=== PATIENT | male | born 1945 | race Caucasian/White ===

== ENCOUNTER 2019-02-24 13:58 | Inpatient (IN) | payer BC ==
[~2019-02-24] VITALS: Ht 27.9 cm; Wt 132.9 kg
--- NOTE | ~2019-02-24 | CON ---
[address] [address] CONSULTATION Name: JULISA PAGE Room: [address] IN M.R.#: [id number] Admission: 02/24/19 Attend Phys: Jammie Mendoza Discharge: 03/01/19 Date of : 41 Report #: [id number] THIS REPORT FOR: //name// CC: Jammie Diego DATE OF SERVICE: 03/01/2019 CHIEF COMPLAINT: Followup of ulceration to the right inferior heel, complicated by type 2 diabetes mellitus and soft tissue infection. Wound cultures growing gram-positive cocci and gram-positive rods. He is on parenteral ceftriaxone with noted improvement. PHYSICAL EXAMINATION: Ulceration to right inferior heel measures roughly 3.0 cm diameter. There is less inflammation and minimal malodor. Overall, clinically improved. There is red granulation to the inferior aspect with some fibronecrotic slough over the proximal 80% of the wound bed. No exposed bone or tendon. IMPRESSION: Diabetic foot ulceration, right inferior heel with soft tissue infection. PLAN: Excisional ulcer debridement performed with the scalpel and forceps to excise subcutaneous tissue and slough. Bleeding was achieved and stopped with pressure. The wound was cleansed and dressed with Aquacel Ag and covered with ABDs, Kerlix and Bhavik bandage. I will follow the patient next week at [facility]. By: 1538 Jignesh Stout DPM /jessie
--- NOTE | ~2019-02-24 | CON ---
[address] [address] CONSULTATION Name: JULISA PAGE Room: [address] IN M.R.#: [id number] Admission: 02/24/19 Attend Phys: Jammie Mendoza Discharge: Date of : 41 Report #: [id number] THIS REPORT FOR: //name// CC: Jammie Diego DATE OF SERVICE: 02/27/2019 ADMISSION DIAGNOSES: ARF, left facial drooping. HISTORY OF PRESENT ILLNESS: A 73-year-old male presented to the Emergency Room with difficulty urinating. He has had a chronic right inferior heel wound for several months, which was debrided at [facility] during his last hospitalization for UTI. He denies any formal surgical debridement in the operating room. Wound swab cultures pending, he is on parenteral ceftriaxone. Wound care consists of topical Aquacel Ag and offloading in a Prevalon boot. He is currently nonambulatory. Foot radiographs negative for osteomyelitis or bone destruction. Blood cultures negative x 2. LABORATORY DATA: WBC 5.0, RBC 3.66, hemoglobin 10.7, hematocrit 31.4, platelets 113. BUN 15, creatinine 1.1, glucose 136. Albumin 2.8. PHYSICAL EXAMINATION: Ulceration to the right posterior calcaneus, measures roughly 3.0 cm with localized periwound inflammation. The wound bed has red granulation with some overlying fibrous slough. No exposed bone. No fluctuance or crepitation. No signs of acute vascular embarrassment. Feet are warm bilaterally with palpable dorsalis pedis and posterior tibial pulses. +3 nonpitting edema to both legs. IMPRESSION: Chronic diabetic heel ulceration, right heel with localized cellulitis. PLAN: The wound was cleansed and redressed with Aquacel Ag, ABDs, Kerlix and a Prevalon PRAFO boot. Awaiting culture results. I recommend bedside debridement tomorrow. By: 1934 [id number] Stout DPM /jessie
[~2019-02-24 13:58] MED LIST: ALPRAZOLAM PO; AMITRIPTYLINE H50 M2; AMLODIPINE BESY10 MG PO; APIDRA; ASPART INSULIN; ASPIRIN81 M2 PO; CARAFATE1 GM/10 ML PO; CLEOCIN HCL150 MG PO; COREG PO; DORYX100 MG PO; DOXYCYCLINE 10100 M1; DOXYCYCLINE 10100 M1 PO; GLUCOPHAGE500 MG PO; GLUCOTROL5 MG PO; HYDROCODON-ACE1 EAC5 PO; HYDROCODONE PO; LANTUS; LANTUSSOLASTAR SUBQ; LEVEMIR; LISINOPRIL40 MG PO; LOW DOSE ASPIRI81 M1 PO; MAGNESIUM400 MG PO; METHOTREXATE 22.5 MG; METHOTREXATE 22.5 MG PO; MINOCYCLINE HC100 M2 PO; NEXIUM PO; PRAVACHOL40 MG PO; PRAVACHOL80 MG PO; PRAVASTATIN SOD80 MG; REQUIP 1 MG TABL1 M1 PO; RESTORIL30 MG PO; XANAX PO; [UNRECOGNIZED DRUG - OTHER]; [UNRECOGNIZED DRUG - OTHER]
[2019-02-24 14:08] VITALS: BP 106/64
[2019-02-24 14:45] LABS: ABSOLUTE EOSINOPHILS 0.2 thou/uL (0.0-0.7); ABSOLUTE LYMPHOCYTES 1.1 thou/uL (0.8-5.3); ABSOLUTE MONOCYTES 0.4 thou/uL (0.0-1.2); ABSOLUTE NEUTROPHILS 4.9 thou/uL (1.6-8.1); BASOPHILS 0.4 %; EOSINOPHILS 2.8 %; HEMATOCRIT 36.3 % (42.0-52.0); HEMOGLOBIN 12.1 gm/dL (14.0-18.0); LYMPHOCYTES 17.1 %; MCH 28.6 pg (26.0-34.0); MCHC 33.2 g/dL (28.0-37.0); MCV 86.2 fL (80.0-100.0); MONOCYTES 6.3 %; NUCLEATED RBCS 0 /100WBC; PLATELET COUNT* 136 thou/uL (150-400); POLYS 73.4 %; RBC 4.21 mil/uL (4.50-6.00); RDW-CV 14.9 % (10.5-14.5); WBC 6.7 thou/uL (4.0-11.0)
[2019-02-24 14:53] LABS: CALCIUM 8.6 mg/dL (8.5-10.1); CREATININE 2.3 mg/dL (0.6-1.3); POTASSIUM 4.3 mmol/L (3.5-5.1)
[2019-02-24 14:57] LABS: ALBUMIN 3.6 g/dL (3.4-5.0); TOTAL BILIRUBIN 0.2 mg/dL (<0.1-1.0)
[2019-02-24 16:45] LABS: URINE BILIRUBIN NEGATIVE (Negative); URINE BLOOD NEGATIVE (Negative); URINE CLARITY CLEAR; URINE COLOR YELLOW; URINE GLUCOSE-RANDOM NEGATIVE (Negative); URINE KETONES NEGATIVE (Negative); URINE LEUKOCYTES-REFLEX NEGATIVE (Negative); URINE NITRITE-REFLEX NEGATIVE (Negative); URINE PROTEIN 2+ (Negative); URINE SPECIFIC GRAVITY >= 1.030 (1.005-1.030); URINE UROBILINOGEN 0.2 E.U./dl (0.2-1.0)
[2019-02-24 16:52] LABS: AMP/METHAMP Negative (Negative); BARBITURATES Negative (Negative); BENZODIAZEPINES POSITIVE (Negative); COCAINE Negative (Negative); METHADONE Negative (Negative); OPIATES POSITIVE (Negative); PCP Negative (Negative); THC Negative (Negative)
[2019-02-24 16:53] LABS: BACTERIA-REFLEX None Seen /HPF (None Seen); CASTS None Seen /LPF (None Seen); CRYSTALS None Seen /LPF (None Seen); MUCUS 0-3 Light strn/LPF (None Seen); SQUAMOUS 4-10 Moderate /LPF (0-3); URINE RBC None Seen /HPF (0-2); URINE WBC-REFLEX None Seen /HPF (0-5)
[2019-02-24 18:15] VITALS: BP 131/63
[2019-02-24 20:00] VITALS: BP 138/64
[2019-02-24] MEDS ORDERED: NORCO 10-325 T1 EACH PO (20:46)
[2019-02-25] VITALS (7 sets, daily range): BP systolic 104–182; BP diastolic 50–81
[2019-02-25] MEDS ORDERED: XANAX1 MG PO (02:12)
[2019-02-25] MEDS ORDERED: CHLORTHALIDONE25 MG PO (02:13)
[2019-02-25] MEDS ORDERED: COLACE100 MG PO (02:15)
[2019-02-25] MEDS ORDERED: CARDURA XL8 MG PO (02:15)
[2019-02-25] MEDS ORDERED: LUNESTA3 MG PO (02:16)
[2019-02-25] MEDS ORDERED: GABAPENTIN600 M1 PO (02:17)
[2019-02-25] MEDS ORDERED: GLIMEPIRIDE4 MG PO (02:19)
[2019-02-25] MEDS ORDERED: XALATAN2.5 ML OPHTHALMIC (02:20)
[2019-02-25] MEDS ORDERED: MICONAZOLE NITR45 G3 TOP (02:21)
[2019-02-25] MEDS ORDERED: REMERON 30 MG T30 M1 PO (02:22)
[2019-02-25] MEDS ORDERED: MS CONTIN 30 MG30 M1 PO (02:24)
[2019-02-25] MEDS ORDERED: MIRALAX17 GM PO (02:25)
[2019-02-25] MEDS ORDERED: MYSOLINE50 MG PO (02:26)
[2019-02-25] MEDS ORDERED: TIMOPTIC 0.5%1 EACH EA. EYE (02:27)
--- NOTE | 2019-02-25 05:33 | NUR ---
PT CARE ASSUMED AT 1930. ALERT AND ORIENTED X4 BUT CONFUSED AT TIMES. SAT DROPPED TO 87% IN RA, CONNECTED TO 3L NC. PT HAD ELEVATED BP AND HR, RUNNING FROM 125-135, PHYSICIAN INFORMED, ORDERS RECIEVED AND IMPLEMENTED. C/O PAIN, MEDICATION GIVEN PER EMAR. HOURLY ROUNDING DONE FOR PT SAFETY.
[2019-02-25 05:47] LABS: ABSOLUTE EOSINOPHILS 0.2 thou/uL (0.0-0.7); ABSOLUTE LYMPHOCYTES 0.8 thou/uL (0.8-5.3); ABSOLUTE MONOCYTES 0.3 thou/uL (0.0-1.2); ABSOLUTE NEUTROPHILS 3.7 thou/uL (1.6-8.1); BASOPHILS 0.4 %; EOSINOPHILS 3.2 %; HEMATOCRIT 31.4 % (42.0-52.0); HEMOGLOBIN 10.7 gm/dL (14.0-18.0); LYMPHOCYTES 15.1 %; MCH 29.2 pg (26.0-34.0); MCHC 34.1 g/dL (28.0-37.0); MCV 85.6 fL (80.0-100.0); MONOCYTES 6.9 %; MPV 7.5 fl. (7.2-11.1); NUCLEATED RBCS 0 /100WBC; PLATELET COUNT* 113 thou/uL (150-400); POLYS 74.4 %; RBC 3.66 mil/uL (4.50-6.00); RDW-CV 14.9 % (10.5-14.5)
[2019-02-25 06:01] LABS: ALBUMIN 2.8 g/dL (3.4-5.0); ALKALINE PHOSPHATASE 112 U/L (46-116); ANION GAP 7 mmol/L (7-16); BUN 41 mg/dL (7-18); CALCIUM 7.9 mg/dL (8.5-10.1); CHLORIDE 103 mmol/L (98-107); CHOLESTEROL 109 mg/dL (<200); CO2 26 mmol/L (21-32); CREATININE 1.9 mg/dL (0.6-1.3); GLUCOSE 218 mg/dL (70-99); HDL CHOLESTEROL 30 mg/dL (>40); LDL CHOLESTEROL 25 mg/dL (<100); POTASSIUM 4.4 mmol/L (3.5-5.1); SGOT 16 U/L (15-37); SGPT 27 U/L (30-65); SODIUM 136 mmol/L (136-145); TC:HDL 3.6 Ratio (Not establshd); TOTAL BILIRUBIN 0.1 mg/dL (<0.1-1.0); TOTAL PROTEIN 5.8 g/dL (6.4-8.2); TRIGLYCERIDE 273 mg/dL (<150); VLDL 55 mg/dL (<40)
[2019-02-25 06:04] LABS: SERUM ASSESSMENT CLEAR
--- NOTE | 2019-02-25 19:43 | NUR ---
ASSUMED PT CARE AT 0730. ASSESSMENT COMPLETED CHARTED. ABLE TO MAKE NEEDS KNOWN. NO C/O PAIN OR DISCOMFORT. Q2 TURNS COMPLETED CHARTED. PT RESTING IN BED ALL DAY. REDNESS NOTICED UNDER LEFT SIDE OF PANIS. CARTER DRAINING YELLOW URINE. WILL CONTINUE TO MONITOR.
[2019-02-26 03:58] VITALS: BP 188/83
[2019-02-26 04:29] VITALS: BP 136/67
--- NOTE | 2019-02-26 05:35 | NUR ---
PT CARE ASSUMED AT 1930. SAT MAINTAINED IN O2. PT IS DROWSY. TEMPRATURE ELEVATED, MEDICATION GIVEN PER EMAR. CALL LIGHT WITHIN REACH AND BED IN LOW POSITION. CARTER IN PLACE AND DRAINING. HOURLY ROUNDING DONE FOR PT SAFETY.
[2019-02-26 08:00] VITALS: BP 168/72
[2019-02-26 11:58] LABS: CREATININE 1.3 mg/dL (0.6-1.3); POTASSIUM 4.4 mmol/L (3.5-5.1)
[2019-02-26 12:52] VITALS: BP 191/82
--- NOTE | 2019-02-26 17:04 | NUR ---
ASSUMED PT CARE AT 0730. ASSESSMENT COMPLETED CHARTED. PT REFUSED MORNING MEDS AND WAS HARD TO AROUSE THIS MORNING. GOT AGITATED AT STAFF AND WANTED US TO LEAVE HIM ALONE THE REST OF THE DAY. PT BLOOD PRESSURE WENT UP TO 190S AND PT AGREED TO TAKE BLOOD PRESSURE MEDICATION AND HIS 2 OCLOCK MEDS. PT SLEEPING IN BED AT THIS TIME. Q2 TURNS COMPLETED CHARTED. C/O BLE PAIN FROM NEUROPATHY AND GAVE PRN PAIN MEDICATION PER EMAR. WILL CONTINUE TO MONITOR.
[2019-02-26 18:33] VITALS: BP 171/75
[2019-02-26 20:00] VITALS: BP 180/85
[2019-02-27] VITALS (7 sets, daily range): BP systolic 126–187; BP diastolic 64–90
[2019-02-27 06:12] LABS: CALCIUM 8.1 mg/dL (8.5-10.1); CREATININE 1.1 mg/dL (0.6-1.3); POTASSIUM 4.4 mmol/L (3.5-5.1)
--- NOTE | 2019-02-27 06:52 | NUR ---
PT CARE ASSUMED AT 1930. WOKE UP CONFUSED THIS AM, DIDN'T KNEW WHERE HE WAS, ORIENTATION PROVIDED, EASILY REDIRECTED WITH ORIENTATION. REFUSING TO PUT HIS HEART MONITOR ON AND BE ON O2. THREW THE HEART MONITOR ON THE FLOOR WHILE THIS NURSE WAS EDUCATING ABOUT THE PURPOSE OF HEART MONITOR. SAT DOWN TO 89% IN RA. THIS NURSE, OTHER STAFF NURSES AND CHARGE NURSE TRIED. PT REFUSING, PROVIDED EDUCATION, NEEEDS REINFORCEMENT. PT OFF THE MONITOR FOR ALMOST ONE AND HALF HOUR. AGREED TO PUT OXYGEN. BP ELEVATED, PHYSICIAN INFORMED AND ORDERS RECIEVED. C/O PAIN, MEDICATION GIVEN PER EMAR. CALL LIGHT WITHIN REACH AND BED IN LOW POSITION. HOURLY ROUNDING DONE FOR PT SAFETY.
--- NOTE | 2019-02-27 11:15 | NUR ---
WOUND CARE NOTE: CONSULT RECEIVED FOR RT HEEL WOUND AND REDNESS ON HIS BOTTOM PATIENT PRESENTS WITH A STAGE 2 PRESSURE ULCER TO HIS COCCYX. BILATERAL BUTTOCK WITH SCAR TISSUE PRESENT, BELIEVE HE HAS HAD PRESSURE INJURIES HERE BEFORE. COCCYX WOUND MEASURES APPROXIMATELY 1X0.3X0.1. MOIST, PINK WOUND BED. RECOMMEND APPLYING BARRIER OINTMENT AND TURNING OFF OF THE SITE. RIGHT HEEL PRESENTS WITH A FULL THICKNESS ULCERATION. WOUND MEASURES APPROXIMATELY 3X3X0.3. APPROXIMATELY 5% WITH RED, MOIST, FRIABLE GRANULATION TISSUE. 95% WITH YELLOW, BLACK ADHERENT ESCHAR. WOUND IS FOUL SMELLING. DRAINING SANGUINEOUS AND BROWN DRAINAGE. LOVELY-WOUND WITH ERYTHEMA AND MACERATION. AREA WAS CLEANSED WITH WOUND CLEANSER, PATTED DRY. APPLIED AQUACEL AG AND COVERED WITH ABD. SECURED WITH KERLIX AND APPLIED HEELMEDIX BOOT. EDUCATED PATIENT ON THE HEELMEDIX BOOT USE, COMMUNICATED UNDERSTANDING. RECOMMEND KEEP HEELS OFF BED TURN Q2 HOURS, LIMIT TIME ON WOUND ENCOURAGE GOOD NUTRTION/HYDRATION TIGHT BLOOD GLUCOSE CONTROL DEBRIDEMENT OF RIGHT HEEL
--- NOTE | 2019-02-27 13:33 | NUR ---
MET WITH PT TO DISCUSS HOME SITUATION/DC PLANNING. PT LIVES WITH SON. HE ASSISTS PT WITH TRANSPORTATION, COOKING, CLEANING. PT IS ABLE TO DO HIS OWN ADLS, USES WALKER. PT HAS HH WITH [facility], WANTS TO CONTINUE WITH THEM AT [place]. PT STATES HIS FOOT WOUND WAS GETTING 'WORSE' AND HH SET HIM UP AT [facility]. PODIATRY TO SEE LATER TODAY. PT HAS BEEN TO SNF IN PAST BUT AT THIS TIME, DOESN'T WANT TO GO, PREFERS TO RETURN HOME AT DC WITH HH. WILL FOLLOW
--- NOTE | 2019-02-27 17:05 | 2DMMODE ---
[place] [address] 2 D/M-MODE ECHOCARDIOGRAM Name: JULISA PAGE Room: [address] IN M.R.#: [id number] Admission: 02/24/19 Attend Phys: Jammie alba Sa Discharge: Date of : 41 Date of Service: 02/27/19 1704 Report #: [id number] THIS REPORT FOR: //name// APPROVED REPORT Study performed: 02/27/2019 11:22:52 EXAM: Comprehensive 2D, Doppler, and color-flow Echocardiogram BSA: 2.41 HR: 90 bpm Other Information Study Quality: Fair Indications CVA/TIA Echo Enhancing Agent Indication: Rule out Shunt Agent(s) / Amount(s) Used: Agitated Saline cc 2D Dimensions IVSd: 23.38 (7-11mm) LVOT Diam: 18.29 (18-24mm) LVDd: 47.16 mm PWd: 12.74 (7-11mm) Ascending Ao: 29.77 (22-36mm) LVDs: 34.58 (25-40mm) Aortic Root: 29.82 mm Volumes Left Atrial Volume (Systole) LA ESV Index: 26.00 mL/m2 Aortic Valve AoV Peak Randal.: 1.09 m/s AO Peak Gr.: 4.73 mmHg LVOT Max P.89 mmHg AO Mean Gr.: 2.96 mmHg LVOT Mean P.81 mmHg LVOT Max V: 0.85 m/s AO V2 VTI: 18.73 cm LVOT Mean V: 0.64 m/s LONNY (VTI): 2.69 cm2 LVOT V1 VTI: 19.16 cm Mitral Valve E/A Ratio: 0.80 MV Decel. Time: 132.60 [place] [address] 2 D/M-MODE ECHOCARDIOGRAM Name: JULISA PAGE Room: [address] IN ..#: [id number] Admission: 02/24/19 Attend Phys: Jammie alba Sa Discharge: Date of : 41 Date of Service: 02/27/19 1704 Report #: [id number] MV E Max Randal.: 1.01 m/s MV PHT: 38.46 ms MVA (PHT): 5.72 cm2 TDI E/Lateral E': 14.43 E/Medial E': 20.20 Medial E' Randal.: 0.05 m/s Lateral E' Randal.: 0.07 m/s Pulmonary Valve PV Peak Randal.: 1.13 m/s PV Peak Gr.: 5.15 mmHg Tricuspid Valve RAP Estimate: 5.00 mmHg TR Peak Gr.: 8.95 mmHg RVSP: 13.95 mmHg PA Pressure: 13.95 mmHg Left Ventricle The left ventricle is normal size. There is normal LV segmental wall motion. Mild concentric left ventricular hypertrophy. Left ventricular systolic function is normal. The left ventricular ejection fraction is within the normal range. LVEF is 60-65%. Grade I - abnormal relaxation pattern. Right Ventricle The right ventricle is normal size. The right ventricular systolic function is normal. Atria The left atrium size is normal. Interatrial septum not well visualized. Injection of bubbles documented no interatrial shunt. The right atrium size is normal. Aortic Valve The aortic valve is normal in structure. No aortic regurgitation is present. There is no aortic valvular stenosis. Mitral Valve Mild mitral annular calcification. Trace mitral regurgitation. No evidence of mitral valve stenosis. Tricuspid Valve The tricuspid valve is normal in structure. There is no tricuspid valve regurgitation noted[place] [address] 2 D/M-MODE ECHOCARDIOGRAM Name: JULISA PAGE Room: [address]#: [id number] Admission: 02/24/19 Attend Phys: Jammie alba Sa Discharge: Date of : 41 Date of Service: 02/27/19 1704 Report #: [id number] The pulmonary valve is normal in structure. There is no pulmonic valvular regurgitation. Great Vessels The aortic root is normal in size. IVC is not visualized. Pericardium There is no pericardial effusion. <Conclusion> The left ventricle is normal size. Mild concentric left ventricular hypertrophy. Left ventricular systolic function is normal. The left ventricular ejection fraction is within the normal range. LVEF is 60-65%. Grade I - abnormal relaxation pattern. The right ventricle is normal size. The left atrium size is normal. The aortic valve is normal in structure. Mild mitral annular calcification. Trace mitral regurgitation. No evidence of mitral valve stenosis. The tricuspid valve is normal in structure. There is no pericardial effusion. There is normal LV segmental wall motion. Interatrial septum not well visualized. Injection of bubbles documented no interatrial shunt. <ELECTRONICALLY SIGNED> By: Candelario Fernandes MD, FACC 02/27/191703 03 03 Candelario Fernandes MD, FACC /INF
--- NOTE | 2019-02-27 17:10 | EKG ---
[place] [address] ELECTROCARDIOGRAM REPORT Name: JULISA PAGE Room: [address] ADM IN M.R.#: [id number] Admission: 02/24/19 Attend Phys: Jammie Mendoza Discharge: Date of : 41 Report #: [id number] THIS REPORT FOR: //name// [facility] Test Date: 2019-02-27 Test Time: 04:48:08 Pat Name: JULISA PAGE Department: Room: [address] Gender: M Vice President Global Digital Marketing: JY : 1945 Requested By: Jeffrey Mcdonnell Order Number: [id number] Jorje MD: Forest Mondragon Measurements Intervals [place] Rate: 117 P: 51 SD: 144 QRS: 0 QRSD: 149 T: 24 QT: 362 QTc: 505 Interpretive Statements Sinus tachycardia Right bundle branch block Inferior infarct Baseline wander in lead(s) V3 Compared to ECG 10/01/2011 03:41:01 No significant changes Electronically Signed On 02-27-2019 17:10:14 DIRECTOR OF ACQUISITION MARKETING by Forest Mondragon [email or web address] <ELECTRONICALLY SIGNED> By: Forest Mondragon MD, FAC 02/27/19 1710 0448 [id number] Forest Mondragon MD, [facility] /EPI
--- NOTE | 2019-02-27 19:33 | NUR ---
ASSUMED PT CARE AT 0730. ASSESSMENT COMPLETED CHARTED. ABLE TO MAKE NEEDS KNOWN. Q2 TURNS COMPLETED CHARTED. C/O BLE PAIN AND GAVE PRN PAIN MEDICATION CHARTE. REFUSED PT/OT TODAY. USED BEDPAN FOR BM AND CARTER DRAINING DARKER YELLOW URINE. RESTING IN BED AT THIS TIME. REFUSED MRI. WILL CONTINUE TO MONITOR.
[2019-02-28] VITALS (8 sets, daily range): BP systolic 135–210; BP diastolic 61–90
--- NOTE | 2019-02-28 04:37 | NUR ---
ASSUMED PT CARE AT APPROX 1930. PT IS AWAKE AND ORIENTED X4 BUT FORGETFUL. ELEVATED BP's NOTED-SEE CHARTING, SCHEDULED BP MEDS GIVEN, VITAL SIGNS STABLE OTHERWISE ON 2L OF O2/NC. PT REFUSED SOME TURNS AND IS IRRITABLE AT TIMES. EDUCATION PROVIDED ON THE IMPORTANCE OF POSITION CHANGES. PT IS ABLE TO SLEEP MOST OF THE NIGHT. CALL LIGHT WITHIN REACH. HOURLY ROUNDING DONE FOR SAFETY. HIGH FALL PRECAUTIONS IN PLACE.
--- NOTE | 2019-02-28 07:20 | NUR ---
CHANGE OF SHIFT, BEDSIDE REPORT GIVEN PATIENT SEEN AT BEDSIDE, IN BED ASLEEP ASSUMED PATIENT CARE
--- NOTE | 2019-02-28 15:54 | NUR ---
ATTEMPTED TO MEET WITH PT, WAS SLEEPING. NOTED HAS REFUSED PT/OT. CALL TO SON/GREYSON WHO PT LIVES WITH. GREYSON CARES FOR PT AT HOME. HE STATES PT IS ABLE TO AMBULATE SHORT DISTANCE WITH WALKER. HE STATES HIS MOTHER (PT'S ) IN NOV AND PT IS DEPRESSED. PT WAS IN SNF AT THE TIME OF HER AND WILL NOT RETURN TO A SNF, WILL GO HOME WITH HH. GREYSON STATED THAT HE IS UNHAPPY WITH CURRENT HH, FELT THAT HE HAD SHARED CONCERN ABOUT PT'S CURRENT FOOT WOUND WITH NURSE AND THEIR INTERVENTION WASN'T ENOUGH. HE IS INTERESTED IN A DIFFERENT HH WITH WOUND CARE. DISCUSSED OPTIONS AND HE HAD NO PREFERENCE. CALL TO [facility], WILL REFER TO A DIFFERENT AGENCY. GREYSON STATED HE WANTS PT TO F/U WITH [facility]. MADE HIM AWARE PT WILL HAVE DEBRIDEMENT TODAY OR TOMORROW AT BEDSIDE BY ASSISTANT PROFESSOR. HE ALSO STATED PT HAD BEEN ON HOSPICE WITH [facility] 5YRS AGO AND WAS 'OVERDOSED' ON [place] BY THEM SO HE STOPPED THAT SERVICE. GREYSON IS DPOA, WILL BRING IN PAPERS TODAY. REF TO [facility] TO SEE IF THEY CAN ACCEPT INSURANCE, THEY CAN. GREYSON TO DISCUSS DIFFERENT HH WITH PT AND CM TO FOLLOW
[2019-03-01 00:33] VITALS: BP 148/72
[2019-03-01 04:00] VITALS: BP 134/68
--- NOTE | 2019-03-01 05:04 | NUR ---
ASSUMED PT CARE AT APPROX 1930. PT IS LETHARGIC BUT AWAKENS EASILY, ORIENTED X4-FORGETFUL AT TIMES. VSS ON 2L OF O2/NC. ASSESSMENT DONE AND CHARTED. HIGH FALL PRECAUTIONS IN PLACE. CALL LIGHT WITHIN REACH. POSITION CHANGES DONE. HOURLY ROUNDING DONE FOR PT SAFETY.
[2019-03-01 05:29] LABS: ABSOLUTE EOSINOPHILS 0.2 thou/uL (0.0-0.7); ABSOLUTE LYMPHOCYTES 0.9 thou/uL (0.8-5.3); ABSOLUTE MONOCYTES 0.4 thou/uL (0.0-1.2); ABSOLUTE NEUTROPHILS 2.4 thou/uL (1.6-8.1); BASOPHILS 0.9 %; EOSINOPHILS 5.6 %; HEMATOCRIT 31.6 % (42.0-52.0); HEMOGLOBIN 10.8 gm/dL (14.0-18.0); LYMPHOCYTES 22.9 %; MCH 29.1 pg (26.0-34.0); MCHC 34.3 g/dL (28.0-37.0); MCV 84.8 fL (80.0-100.0); MONOCYTES 9.4 %; MPV 7.7 fl. (7.2-11.1); NUCLEATED RBCS 0 /100WBC; PLATELET COUNT* 151 thou/uL (150-400); POLYS 61.2 %; RBC 3.73 mil/uL (4.50-6.00); RDW-CV 14.5 % (10.5-14.5); WBC 3.9 thou/uL (4.0-11.0)
[2019-03-01 05:46] LABS: ALBUMIN 2.3 g/dL (3.4-5.0); CALCIUM 8.3 mg/dL (8.5-10.1); CREATININE 1.1 mg/dL (0.6-1.3); POTASSIUM 3.8 mmol/L (3.5-5.1); TOTAL BILIRUBIN 0.2 mg/dL (<0.1-1.0); TOTAL PROTEIN 5.7 g/dL (6.4-8.2)
[2019-03-01 07:30] VITALS: BP 159/69
--- NOTE | 2019-03-01 12:03 | CON ---
[address] [address] CONSULTATION Name: JULISA PAGE Room: [address] IN M.R.#: [id number] Admission: 02/24/19 Attend Phys: Jammie Mendoza Discharge: Date of : 41 Report #: [id number] THIS REPORT FOR: //name// CC: Jammie Diego DATE OF SERVICE: 02/28/2019 INFECTIOUS DISEASE CONSULTATION ATTENDING PHYSICIAN: Stevenson Garcia MD REASON FOR EVALUATION: Chronic right inferior heel wound going on for multiple months. He had been followed as an outpatient at [facility]. He had 3 times a week wound care with lack of progression. He was admitted actually through the Emergency Room with complaints of difficulty urinating as well as left facial drooping and some renal failure. He is noted undergoing wound care and supposed to have a bedside debridement. He is at least moderately encephalopathic. He has some foot pain. It is not clear whether he has ongoing neuropathy. No recent fevers. He has been empirically started on ceftriaxone. Cultures of the blood are sterile thus far as is the urine, which is pending and the foot culture. ALLERGIES: None known. MEDICATIONS: Include hydralazine, alprazolam, carvedilol, ceftriaxone, morphine, insulin glargine, doxazosin, mirtazapine, insulin lispro, finasteride, glipizide, aspirin, gabapentin, amlodipine, chlorthalidone, atorvastatin. PAST MEDICAL HISTORY: Diabetes mellitus type 2, insulin requiring; hypertension; history of histoplasmosis; arthritis, multiple sites and has degree of encephalopathy. SOCIAL HISTORY: He is a former smoker, occasional ethanol, although excessive use in the past. No illicit drug use. FAMILY HISTORY: Noncontributory. REVIEW OF SYSTEMS: Somewhat limited as above. Does admit to some mild dyspnea. He is on supplemental oxygen, normally at home. PHYSICAL EXAMINATION: GENERAL: He appears chronically ill, undernourished. He is again encephalopathic. VITAL SIGNS: Temperature 97.8, pulse 100, respirations 19, blood pressure 150/66. [place] [address] CONSULTATION Name: JULISA PAGE Room: [address] IN [facility]#: [id number] Admission: 02/24/19 Attend Phys: Jammie Mendoza Discharge: Date of : 41 Report #: [id number] SKIN: Warm, dry. HEENT: Normocephalic. Extraocular muscles intact. NECK: Supple. LUNGS: Scattered coarse breath sounds. HEART: Regular. Borderline tachycardic. I do not appreciate a murmur. ABDOMEN: Distended, generally soft, nontender. GENITOURINARY: Deferred. RECTAL: Deferred. LABORATORY DATA: Echo, EF of 60-65%, some mild concentric left ventricular hypertrophy, no significant valvular abnormalities. Electrolytes from yesterday: Sodium 139, potassium 4.4, chloride 104, bicarb is 29, anion gap of 6, BUN and creatinine 15 and 1.1, estimated GFR 65. Blood cultures sterile thus far. TSH is 0.771. CBC from the 11th: White count of 5.0, H and H 10.7 and 31.4, platelets of 113. ASSESSMENT AND PLAN: Right heel ulcer, chronic in nature. We will discuss with Dr. Stout, pending bedside debridement. Continue empiric therapy with ceftriaxone. Await the further culture results. May need to adjust treatment. Again, he remains tenuous at this point. We will add incentive spirometry. Would be concerned about nosocomial related infectious complications as well. Increase activity as much as optimize nutritional status. <ELECTRONICALLY SIGNED> By: Brayan Magdaleno MD 03/01/19 1203 1022 [id number] Magdaleno MD /nt
--- NOTE | 2019-03-01 12:05 | NUR ---
CONTINUE TO FOLLOW. MET WITH PT, HE WAS UP IN CHAIR. DISCUSSED HH WITH HIM AND CONVERSATION CM HAD WITH SON YESTERDAY RE: POSSIBLE CHANGE OF HH. PT STATED HE WAS 'FINE' WITH HIS CURRENT NURSE AND DIDN'T WANT 'TO GET HER IN TROUBLE.' EXPLAINE TO PT THAT HE NEEDED TO DISCUSS WITH HIS SON SON HAD CONCERNS. PT STILL PLANS TO RETURN HOME AT [place]. PENDING PODIATRY RE-EVAL AND POSSIBLE DEBRIDEMENT. DISCUSSED WITH , AWAIT CULTURES AND ID DIRECTION ABX. WILL FOLLOW
[2019-03-01 12:28] VITALS: BP 161/66
[2019-03-01 15:49] VITALS: BP 161/66
[2019-03-01] MEDS ORDERED: CEFDINIR300 MG PO (16:26)
--- NOTE | 2019-03-01 17:00 | NUR ---
RECEIVED DISCHARGE ORDERS PER DR CARRERA. DR VAIL AND DR CARSON OK WITH DC TODAY. DEBRIDEMENT DONE BY DR VAIL THIS AFTERNOON AND A NEW DRESSING WAS PLACED TO PATIENTS RIGHT HEEL. ANTIBIOTICS ORDERED PER DR CARSON AND CALLED INTO THE PATIENTS PHARMACY BY THIS RN. IV DISCONTINUED. GLASS FORMING CREW MEMBER REMOVED AND RETURNED TO THE NURSE'S DESK. PATIENT'S BROTHER COMING TO PROVIDE TRANSPORTATION FOR PATIENT HOME. CARTER CATHETER IN PLACE AT DISCHARGE AND INSTRUCTED PATIENT TO F/U WITH UROLOGY IN 7-10 DAYS FOR VOIDING TRIAL. PATIENT AGREEABLE FOR DC TODAY.
== END 2019-03-01 18:15 | disposition home health service (06) | DRG 40 ==
LOC: M.ERS 13:58 → M.2W 15:54 → M.TBA-ER 15:54 → M.2W 18:37
PROVIDERS: Internal Medicine; Physician Assistant; Urology; ADMIT Family Medicine
PROC: 0JBQ0ZZ Excision of Right Foot Subcutaneous Tissue and Fascia, Open Approach (ICD-10-PCS; principal; 2019-02-24)
DX: G45.9 Transient cerebral ischemic attack, unspecified (principal); N17.0 Acute kidney failure with tubular necrosis; L03.115 Cellulitis of right lower limb; E44.0 Moderate protein-calorie malnutrition; E11.621 Type 2 diabetes mellitus with foot ulcer; N28.1 Cyst of kidney, acquired; I10 Essential (primary) hypertension; M17.0 Bilateral primary osteoarthritis of knee; R29.810 Facial weakness; G25.81 Restless legs syndrome; L40.9 Psoriasis, unspecified; G89.29 Other chronic pain; N40.0 Benign prostatic hyperplasia without lower urinary tract symptoms; L89.611 Pressure ulcer of right heel, stage 1; N40.1 Benign prostatic hyperplasia with lower urinary tract symptoms; R33.8 Other retention of urine; Z87.891 Personal history of nicotine dependence; Z79.4 Long term (current) use of insulin; Z82.49 Family history of ischemic heart disease and other diseases of the circulatory system; Z83.3 Family history of diabetes mellitus

== ENCOUNTER → 2019-03-08 | Outpatient (CLI) | payer BC ==
[~2019-03-08] MED LIST changes: +CARDURA XL8 MG PO; +CEFDINIR300 MG PO; +CHLORTHALIDONE25 MG PO; +COLACE100 MG PO; +GABAPENTIN600 M1 PO; +GLIMEPIRIDE4 MG PO; +LUNESTA3 MG PO; +MICONAZOLE NITR45 G3 TOP; +MIRALAX17 GM PO; +MS CONTIN 30 MG30 M1 PO; +MYSOLINE50 MG PO; +NORCO 10-325 T1 EACH PO; +REMERON 30 MG T30 M1 PO; +TIMOPTIC 0.5%1 EACH EA. EYE; +XALATAN2.5 ML OPHTHALMIC; +XANAX1 MG PO
--- NOTE | 2019-03-09 12:03 | CON ---
[address] [address] CONSULTATION Name: JULISA PAGE Room: [facility] A[facility] Singh.#: [id number] Admission: 03/08/19 Attend Phys: Renny Stout DPM Discharge: Date of : 41 Report #: [id number] THIS REPORT FOR: //name// CC: Renny Hernández DATE OF SERVICE: 03/08/2019 INFECTIOUS DISEASE CONSULTATION FOLLOWUP ATTENDING PHYSICIAN: Sana Amaya.P. M. HISTORY OF PRESENT ILLNESS: He is here for necrotizing infection involving his right heel. He continues to deny significant amount of pain or discomfort associated with the site, although I believe he has some peripheral neuropathy. He generally has not been systemically ill. On examination, the wound appears quite improved, there is a very little necrotic tissue that remains. For right heel ulceration, at this point, we would continue the current approach. He has got 4 more days of antibiotics. We will plan to complete that particular prescription and discontinue. We will see him back in 2 weeks. <ELECTRONICALLY SIGNED> By: Brayan Magdaleno MD 03/09/19 1203 0900 [id number] Magdaleno MD /nt
== END ==
LOC: M.WC 14:00
DX: E11.621 Type 2 diabetes mellitus with foot ulcer (principal); L97.412 Non-pressure chronic ulcer of right heel and midfoot with fat layer exposed; E11.65 Type 2 diabetes mellitus with hyperglycemia; E78.5 Hyperlipidemia, unspecified; I10 Essential (primary) hypertension; G89.4 Chronic pain syndrome; G25.89 Other specified extrapyramidal and movement disorders; K59.04 Chronic idiopathic constipation; L40.9 Psoriasis, unspecified; M19.91 Primary osteoarthritis, unspecified site; F41.9 Anxiety disorder, unspecified; Z87.891 Personal history of nicotine dependence; Z86.73 Personal history of transient ischemic attack (TIA), and cerebral infarction without residual deficits

== ENCOUNTER 2019-03-10 21:53 | Emergency (ER) | payer BC ==
[~2019-03-10] VITALS: Ht 180.3 cm; Wt 127.0 kg
[2019-03-10 22:40] LABS: URINE BILIRUBIN NEGATIVE (Negative); URINE BLOOD 2+ (Negative); URINE CLARITY CLEAR; URINE COLOR YELLOW; URINE GLUCOSE-RANDOM NEGATIVE (Negative); URINE KETONES NEGATIVE (Negative); URINE LEUKOCYTES-REFLEX NEGATIVE (Negative); URINE NITRITE-REFLEX NEGATIVE (Negative); URINE PROTEIN 1+ (Negative); URINE SPECIFIC GRAVITY <= 1.005 (1.005-1.030); URINE UROBILINOGEN 0.2 E.U./dl (0.2-1.0)
[2019-03-10 22:47] LABS: CRYSTALS None Seen /LPF (None Seen); HYALINE CASTS 0-3 Few /LPF (None Seen); MUCUS 4-6 Moderate strn/LPF (None Seen); SQUAMOUS 0-3 Few /LPF (0-3); URINE RBC 3-10 Few /HPF (0-2); WBC CLUMPS Few (None Seen)
[2019-03-10 22:52] LABS: ABSOLUTE BASOPHILS 0.1 thou/uL (0.0-0.2); ABSOLUTE EOSINOPHILS 0.3 thou/uL (0.0-0.7); ABSOLUTE LYMPHOCYTES 1.2 thou/uL (0.8-5.3); ABSOLUTE MONOCYTES 0.4 thou/uL (0.0-1.2); ABSOLUTE NEUTROPHILS 4.7 thou/uL (1.6-8.1); EOSINOPHILS 4.7 %; HEMATOCRIT 34.1 % (42.0-52.0); HEMOGLOBIN 11.5 gm/dL (14.0-18.0); LYMPHOCYTES 18.5 %; MCH 28.5 pg (26.0-34.0); MCHC 33.8 g/dL (28.0-37.0); MCV 84.3 fL (80.0-100.0); MONOCYTES 6.1 %; MPV 7.8 fl. (7.2-11.1); NUCLEATED RBCS 0 /100WBC; PLATELET COUNT* 201 thou/uL (150-400); POLYS 69.7 %; RBC 4.05 mil/uL (4.50-6.00); RDW-CV 14.1 % (10.5-14.5); WBC 6.7 thou/uL (4.0-11.0)
[2019-03-10 23:11] LABS: CREATININE 1.4 mg/dL (0.6-1.3); POTASSIUM 4.4 mmol/L (3.5-5.1)
[2019-03-11] MEDS ORDERED: CIPROFLOXACIN500 M1 PO (01:40)
[2019-03-11] MEDS ORDERED: FLOMAX0.4 MG PO (01:40)
[2019-03-11] MEDS ORDERED: TEMAZEPAM15 MG PO (02:10)
[2019-03-11 02:15] VITALS: BP 165/78
== END 2019-03-11 02:16 | disposition home or self-care (01) ==
LOC: M.ERS 21:53
PROVIDERS: Emergency Medicine
DX: N39.0 Urinary tract infection, site not specified (principal); E11.9 Type 2 diabetes mellitus without complications; I10 Essential (primary) hypertension; Z79.4 Long term (current) use of insulin

== ENCOUNTER → 2019-04-12 | Outpatient (CLI) | payer BC ==
[~2019-04-12] MED LIST changes: +CIPROFLOXACIN500 M1 PO; +FLOMAX0.4 MG PO; +TEMAZEPAM15 MG PO
== END ==
LOC: M.WC 02:13
DX: E11.621 Type 2 diabetes mellitus with foot ulcer (principal); L97.412 Non-pressure chronic ulcer of right heel and midfoot with fat layer exposed; I87.2 Venous insufficiency (chronic) (peripheral); I10 Essential (primary) hypertension; E11.40 Type 2 diabetes mellitus with diabetic neuropathy, unspecified; E78.5 Hyperlipidemia, unspecified; G89.4 Chronic pain syndrome; G25.81 Restless legs syndrome; L40.9 Psoriasis, unspecified; F41.9 Anxiety disorder, unspecified; Z87.891 Personal history of nicotine dependence; Z86.73 Personal history of transient ischemic attack (TIA), and cerebral infarction without residual deficits

== ENCOUNTER → 2019-04-26 | Outpatient (CLI) | payer BC | LOC: M.WC 04:51 | DX: E11.621 Type 2 diabetes mellitus with foot ulcer (principal); L97.412 Non-pressure chronic ulcer of right heel and midfoot with fat layer exposed; E11.40 Type 2 diabetes mellitus with diabetic neuropathy, unspecified; E11.51 Type 2 diabetes mellitus with diabetic peripheral angiopathy without gangrene; E66.9 Obesity, unspecified; I87.2 Venous insufficiency (chronic) (peripheral); Z68.39 Body mass index [BMI] 39.0-39.9, adult; Z87.891 Personal history of nicotine dependence ==

== ENCOUNTER → 2019-05-18 | Outpatient (CLI) | payer BC | LOC: M.WC 05-11 10:00 | DX: E11.621 Type 2 diabetes mellitus with foot ulcer (principal); L97.412 Non-pressure chronic ulcer of right heel and midfoot with fat layer exposed; E11.622 Type 2 diabetes mellitus with other skin ulcer; L89.311 Pressure ulcer of right buttock, stage 1; L98.411 Non-pressure chronic ulcer of buttock limited to breakdown of skin; L40.9 Psoriasis, unspecified; E11.40 Type 2 diabetes mellitus with diabetic neuropathy, unspecified; E78.5 Hyperlipidemia, unspecified; G89.4 Chronic pain syndrome; G25.81 Restless legs syndrome; I87.2 Venous insufficiency (chronic) (peripheral); I10 Essential (primary) hypertension; F41.9 Anxiety disorder, unspecified; Z87.891 Personal history of nicotine dependence; Z86.73 Personal history of transient ischemic attack (TIA), and cerebral infarction without residual deficits ==

== ENCOUNTER → 2019-05-31 | Outpatient (CLI) | payer BC | LOC: M.WC 10:00 | DX: E11.621 Type 2 diabetes mellitus with foot ulcer (principal); L97.412 Non-pressure chronic ulcer of right heel and midfoot with fat layer exposed; E11.622 Type 2 diabetes mellitus with other skin ulcer; L89.311 Pressure ulcer of right buttock, stage 1; L98.411 Non-pressure chronic ulcer of buttock limited to breakdown of skin; L97.811 Non-pressure chronic ulcer of other part of right lower leg limited to breakdown of skin; E11.40 Type 2 diabetes mellitus with diabetic neuropathy, unspecified; E11.51 Type 2 diabetes mellitus with diabetic peripheral angiopathy without gangrene; I87.2 Venous insufficiency (chronic) (peripheral); I10 Essential (primary) hypertension; G89.4 Chronic pain syndrome; E78.5 Hyperlipidemia, unspecified; G25.81 Restless legs syndrome; L40.9 Psoriasis, unspecified; E66.01 Morbid (severe) obesity due to excess calories; F41.9 Anxiety disorder, unspecified; Z68.39 Body mass index [BMI] 39.0-39.9, adult; Z86.73 Personal history of transient ischemic attack (TIA), and cerebral infarction without residual deficits; Z87.891 Personal history of nicotine dependence; Z79.82 Long term (current) use of aspirin; Z79.4 Long term (current) use of insulin ==

== ENCOUNTER → 2019-06-07 | Outpatient (CLI) | payer BC | LOC: M.WC 03:23 | DX: E11.621 Type 2 diabetes mellitus with foot ulcer (principal); L97.412 Non-pressure chronic ulcer of right heel and midfoot with fat layer exposed; E11.622 Type 2 diabetes mellitus with other skin ulcer; L89.311 Pressure ulcer of right buttock, stage 1; L98.411 Non-pressure chronic ulcer of buttock limited to breakdown of skin; L97.811 Non-pressure chronic ulcer of other part of right lower leg limited to breakdown of skin; L40.9 Psoriasis, unspecified; E11.40 Type 2 diabetes mellitus with diabetic neuropathy, unspecified; E11.51 Type 2 diabetes mellitus with diabetic peripheral angiopathy without gangrene; E66.01 Morbid (severe) obesity due to excess calories; E78.5 Hyperlipidemia, unspecified; G25.81 Restless legs syndrome; G89.4 Chronic pain syndrome; I10 Essential (primary) hypertension; I87.2 Venous insufficiency (chronic) (peripheral); F41.9 Anxiety disorder, unspecified; Z87.891 Personal history of nicotine dependence; Z86.73 Personal history of transient ischemic attack (TIA), and cerebral infarction without residual deficits ==

== ENCOUNTER → 2019-06-14 | Outpatient (CLI) | payer BC | LOC: M.WC 03:16 | DX: E11.621 Type 2 diabetes mellitus with foot ulcer (principal); L97.412 Non-pressure chronic ulcer of right heel and midfoot with fat layer exposed; E11.622 Type 2 diabetes mellitus with other skin ulcer; L89.311 Pressure ulcer of right buttock, stage 1; L98.411 Non-pressure chronic ulcer of buttock limited to breakdown of skin; L97.811 Non-pressure chronic ulcer of other part of right lower leg limited to breakdown of skin; E11.51 Type 2 diabetes mellitus with diabetic peripheral angiopathy without gangrene; E11.40 Type 2 diabetes mellitus with diabetic neuropathy, unspecified; E66.01 Morbid (severe) obesity due to excess calories; E78.5 Hyperlipidemia, unspecified; L40.9 Psoriasis, unspecified; G89.4 Chronic pain syndrome; G25.81 Restless legs syndrome; I87.2 Venous insufficiency (chronic) (peripheral); I10 Essential (primary) hypertension; F41.9 Anxiety disorder, unspecified; Z79.4 Long term (current) use of insulin; Z87.891 Personal history of nicotine dependence; Z86.73 Personal history of transient ischemic attack (TIA), and cerebral infarction without residual deficits; Z79.82 Long term (current) use of aspirin; Z68.39 Body mass index [BMI] 39.0-39.9, adult ==

== ENCOUNTER → 2019-06-21 | Outpatient (CLI) | payer BC | LOC: M.WC 05:26 | DX: E11.621 Type 2 diabetes mellitus with foot ulcer (principal); L97.412 Non-pressure chronic ulcer of right heel and midfoot with fat layer exposed; E11.622 Type 2 diabetes mellitus with other skin ulcer; L97.811 Non-pressure chronic ulcer of other part of right lower leg limited to breakdown of skin; L89.311 Pressure ulcer of right buttock, stage 1; L98.411 Non-pressure chronic ulcer of buttock limited to breakdown of skin; L84 Corns and callosities; E11.40 Type 2 diabetes mellitus with diabetic neuropathy, unspecified; E66.01 Morbid (severe) obesity due to excess calories; E78.5 Hyperlipidemia, unspecified; G89.4 Chronic pain syndrome; G25.81 Restless legs syndrome; I87.2 Venous insufficiency (chronic) (peripheral); I10 Essential (primary) hypertension; L40.9 Psoriasis, unspecified; F41.9 Anxiety disorder, unspecified; Z87.891 Personal history of nicotine dependence; Z86.73 Personal history of transient ischemic attack (TIA), and cerebral infarction without residual deficits; Z79.4 Long term (current) use of insulin; Z79.82 Long term (current) use of aspirin; Z68.39 Body mass index [BMI] 39.0-39.9, adult ==

== ENCOUNTER 2019-10-03 20:03 | Inpatient (IN) | payer BC ==
[~2019-10-03] VITALS: Ht 180.3 cm; Wt 138.2 kg
[2019-10-03 20:23] VITALS: BP 131/58
[2019-10-03] MEDS ORDERED: ALPRAZOLAM XR3 MG PO (20:31)
[2019-10-03] MEDS ORDERED: FUROSEMIDE 20 M20 MG PO (20:32)
[2019-10-03] MEDS ORDERED: CARDURA8 MG PO (20:32)
[2019-10-03] MEDS ORDERED: KEFLEX500 M1 PO (20:32)
[2019-10-03 20:33] LABS: ABSOLUTE EOSINOPHILS 0.2 thou/uL (0.0-0.7); ABSOLUTE MONOCYTES 0.4 thou/uL (0.0-1.2); ABSOLUTE NEUTROPHILS 4.3 thou/uL (1.6-8.1); BASOPHILS 0.2 %; EOSINOPHILS 3.7 %; HEMATOCRIT 25.6 % (42.0-52.0); HEMOGLOBIN 8.3 gm/dL (14.0-18.0); LYMPHOCYTES 16.6 %; MCHC 32.6 g/dL (28.0-37.0); MCV 82.9 fL (80.0-100.0); MONOCYTES 7.3 %; MPV 7.5 fl. (7.2-11.1); NUCLEATED RBCS 0 /100WBC; PLATELET COUNT* 242 thou/uL (150-400); POLYS 72.2 %; RBC 3.09 mil/uL (4.50-6.00); RDW-CV 14.8 % (10.5-14.5); WBC 5.9 thou/uL (4.0-11.0)
[2019-10-03] MEDS ORDERED: GRALISE600 MG PO (20:33)
[2019-10-03] MEDS ORDERED: LANTUS SUBQ (20:33)
[2019-10-03] MEDS ORDERED: NORCO 10-325 T1 EACH PO (20:33)
[2019-10-03] MEDS ORDERED: LOPRESSOR50 MG PO (20:34)
[2019-10-03] MEDS ORDERED: METFORMIN HCL500 M3 PO (20:34)
[2019-10-03] MEDS ORDERED: LISINOPRIL2.5 MG PO (20:34)
[2019-10-03] MEDS ORDERED: ARYMO ER30 MG PO (20:35)
[2019-10-03] MEDS ORDERED: DIGESTIVE PROB250 MG PO (20:36)
[2019-10-03 20:43] LABS: URINE BILIRUBIN NEGATIVE (Negative); URINE BLOOD 3+ (Negative); URINE CLARITY SL CLOUDY; URINE COLOR YELLOW; URINE GLUCOSE-RANDOM NEGATIVE (Negative); URINE KETONES NEGATIVE (Negative); URINE LEUKOCYTES-REFLEX TRACE (Negative); URINE NITRITE-REFLEX POSITIVE (Negative); URINE PROTEIN 3+ (Negative); URINE SPECIFIC GRAVITY >= 1.030 (1.005-1.030); URINE UROBILINOGEN 0.2 E.U./dl (0.2-1.0)
[2019-10-03 20:44] LABS: CALCIUM 8.2 mg/dL (8.5-10.1); CREATININE 1.8 mg/dL (0.6-1.3); POTASSIUM 4.2 mmol/L (3.5-5.1)
[2019-10-03 20:50] LABS: INR 1.1; PROTIME 11.5 Seconds (9.20-11.50)
[2019-10-03 20:55] LABS: ALBUMIN 2.4 g/dL (3.4-5.0); MAGNESIUM 1.8 mg/dL (1.8-2.4); TOTAL BILIRUBIN 0.3 mg/dL (<0.1-1.0); TOTAL PROTEIN 6.3 g/dL (6.4-8.2)
[2019-10-03 21:06] LABS: HYALINE CASTS >10 Many /LPF (None Seen); MUCUS 0-3 Light strn/LPF (None Seen); SQUAMOUS >10 Many /LPF (0-3)
[2019-10-03 21:07] LABS: BACTERIA-REFLEX >30 Many /HPF (None Seen); CRYSTALS None Seen /LPF (None Seen)
[2019-10-04] VITALS (7 sets, daily range): BP systolic 139–170; BP diastolic 51–73
[2019-10-04 10:17] LABS: CALCIUM 7.7 mg/dL (8.5-10.1); CREATININE 1.5 mg/dL (0.6-1.3); MAGNESIUM 1.7 mg/dL (1.8-2.4); POTASSIUM 4.4 mmol/L (3.5-5.1)
[2019-10-04 10:18] LABS: APTT 32.7 Seconds (25.0-31.3); INR 1.1; PROTIME 11.7 Seconds (9.20-11.50)
[2019-10-04 10:36] LABS: BE 4.3 mmol/L (-2 to +3); PO2 81.8 mmHg (75.0-100.0); pH 7.383 (7.340-7.450)
[2019-10-04 10:38] LABS: PCO2 51.5 mmHg (35.0-45.0)
--- NOTE | 2019-10-04 13:17 | EKG ---
[place] [address] ELECTROCARDIOGRAM REPORT Name: JULISA PAGE Room: [address] ADM IN .R.#: [id number] Admission: 10/03/19 Attend Phys: Marina Bustillo, Discharge: Date of : 41 Date of Service: 10/03/192025 Report #: [id number] THIS REPORT FOR: //name// [facility] ED Test Date: 2019-10-03 Test Time: 20:26:51 Pat Name: JULISA PAGE Department: Room: [facility] Gender: M Combination Worker: JULIA : 1945 Requested By: Etelvina Giraldo Order Number: [id number] MD: Candelario Fernandes Measurements Intervals [place] Rate: 109 P: 41 RI: 136 QRS: 27 QRSD: 145 T: 23 QT: 366 QTc: 494 Interpretive Statements Sinus tachycardia Right bundle branch block Compared to ECG 02/27/2019 04:48:08 Myocardial infarct finding no longer present Electronically Signed On 10-04-2019 13:17:17 CDT by Candelario Fernandes [email or web address] <ELECTRONICALLY SIGNED> By: Candelario Fernandes MD, [facility] 10/04/19 1317 25 25 Candelario Fernandes MD, [facility] /EPI
[2019-10-04 15:39] LABS: HEMATOCRIT 24.3 % (42.0-52.0); HEMOGLOBIN 7.9 gm/dL (14.0-18.0); MCHC 32.7 g/dL (28.0-37.0); MCV 82.6 fL (80.0-100.0); MPV 7.4 fl. (7.2-11.1); RBC 2.94 mil/uL (4.50-6.00); RDW-CV 14.7 % (10.5-14.5); WBC 5.4 thou/uL (4.0-11.0)
[2019-10-04 15:49] LABS: APTT 26.1 Seconds (25.0-31.3); INR 1.1; PROTIME 11.6 Seconds (9.20-11.50)
[2019-10-04 15:50] LABS: CALCIUM 7.8 mg/dL (8.5-10.1); CREATININE 1.5 mg/dL (0.6-1.3); POTASSIUM 4.5 mmol/L (3.5-5.1)
[2019-10-05 00:02] VITALS: BP 191/71
--- NOTE | 2019-10-05 03:46 | CON ---
[address] [address] CONSULTATION Name: KAYELEJULISA Hernandez Room: [address] M.R.#: [id number] Admission: 10/03/19 Attend Phys: Marina Bustillo MD Discharge: Date of : 41 Report #: [id number] THIS REPORT FOR: //name// cc: Artur Hernández MD, Richard K. MD ~ THIS REPORT FOR: //name// CC: Marina Hernández DATE OF SERVICE: 10/04/2019 HISTORY OF PRESENT ILLNESS: This is a 73-year-old male patient who was seen by me for code stroke. The patient apparently stopped talking and was found to be weak on the left side. The duration is not clear. We made multiple attempts to reach somebody, but were finally able to reach the patient's brother, and as we understand from him now, this is going on for a couple of weeks. He is worse today, but finally it was also noticed that his blood sugar is also 49. I have talked to nurses multiple times, it looks like his blood sugar is somewhat better now and he is somewhat more responsive, but he is having some trouble for 2 weeks, which became worse today. He had a fall. He had a urinary tract infection. He has renal failure where his BUN and creatinine were low. I do not know whether the patient had a history of stroke or not. I tried to talk to the brother twice, but I could not reach him, but subsequently he talked to the nurses and provided them this history. REVIEW OF SYSTEMS: Positive for renal failure, facial droop, urinary tract infection, encephalopathy, and some jerking. This is all the history I can get. PAST MEDICAL HISTORY: Difficult to tell if he has dementia or not. It looks like he is losing his memory. He is on multiple medications. Who is managing his medication is not clear. Some of the medication will be affected by his renal failure. SOCIAL HISTORY: He has a brother. I am not able to reach, but we will try again tomorrow. His examination was pretty limited. He was having some jerking. He did not wake up for me. Subsequently, he woke up a little bit. We got a CT scan of the head done that does not appear to be showing any acute abnormality. I could not get a CT angio because of his renal failure. We are trying to reach the brother again, and if he can fill up a questionnaire, then we will get an MRI and MRA done, and until that shows something, we probably need to treat him like encephalopathy. Mainly, correcting his blood sugar, his urinary tract infection, etc., and we will talk to [place] [address] CONSULTATION Name: JULISA PAGE Room: [address] M.R.#: [id number] Admission: 10/03/19 Attend Phys: Marina Bustillo MD Discharge: Date of : 41 Report #: [id number] aggressive he wants to be. Thank you very much for this referral. I spent more than 50 minutes of time taking care of this patient today and majority of that time was spent counseling and coordinating. <ELECTRONICALLY SIGNED> By: Curry Youssef MD 10/05/19 0346 Curry Youssef MD /nt
[2019-10-05 04:00] VITALS: BP 150/60
[2019-10-05 04:16] LABS: HEMOGLOBIN 8.1 gm/dL (14.0-18.0); MCH 26.9 pg (26.0-34.0); MCHC 32.5 g/dL (28.0-37.0); MCV 82.8 fL (80.0-100.0); MPV 7.6 fl. (7.2-11.1); RBC 3.02 mil/uL (4.50-6.00); RDW-CV 14.6 % (10.5-14.5); WBC 4.9 thou/uL (4.0-11.0)
[2019-10-05 04:23] LABS: CALCIUM 8.2 mg/dL (8.5-10.1); CREATININE 1.5 mg/dL (0.6-1.3); MAGNESIUM 1.8 mg/dL (1.8-2.4); POTASSIUM 4.1 mmol/L (3.5-5.1)
[2019-10-05 08:00] VITALS: BP 141/50
[2019-10-05 11:15] VITALS: BP 141/93
[2019-10-05 15:25] VITALS: BP 112/41
[2019-10-05 20:00] VITALS: BP 117/60
[2019-10-06] VITALS (9 sets, daily range): BP systolic 126–227; BP diastolic 63–84
[2019-10-06 06:20] LABS: CALCIUM 8.3 mg/dL (8.5-10.1); CREATININE 1.4 mg/dL (0.6-1.3); MAGNESIUM 1.8 mg/dL (1.8-2.4); POTASSIUM 4.3 mmol/L (3.5-5.1)
[2019-10-07 00:10] VITALS: BP 179/79
[2019-10-07 04:00] VITALS: BP 197/86
[2019-10-07 08:00] VITALS: BP 185/73
[2019-10-07 12:13] VITALS: BP 134/53
[2019-10-07 15:55] VITALS: BP 153/56
[2019-10-07 20:00] VITALS: BP 177/79
[2019-10-08] VITALS: BP 144/60
[2019-10-08 04:00] VITALS: BP 158/63
[2019-10-08 08:00] VITALS: BP 182/76
[2019-10-08 17:11] VITALS: BP 152/66
[2019-10-08 17:30] LABS: URINE BILIRUBIN NEGATIVE (Negative); URINE BLOOD 3+ (Negative); URINE CLARITY CLEAR; URINE COLOR YELLOW; URINE GLUCOSE-RANDOM NEGATIVE (Negative); URINE KETONES NEGATIVE (Negative); URINE LEUKOCYTES-REFLEX TRACE (Negative); URINE NITRITE-REFLEX NEGATIVE (Negative); URINE PROTEIN 1+ (Negative); URINE SPECIFIC GRAVITY 1.015 (1.005-1.030); URINE UROBILINOGEN 0.2 E.U./dl (0.2-1.0)
[2019-10-08 17:42] LABS: AMORPHOUS URATES Few /LPF (None Seen); BACTERIA-REFLEX None Seen /HPF (None Seen); CASTS None Seen /LPF (None Seen); MUCUS None Seen strn/LPF (None Seen); SQUAMOUS NONE SEEN /LPF (0-3); URINE RBC >20 Many /HPF (0-2); URINE WBC-REFLEX 0-5 Rare /HPF (0-5)
[2019-10-08 20:00] VITALS: BP 175/60
[2019-10-09 04:00] VITALS: BP 183/53
[2019-10-09 05:20] LABS: HEMATOCRIT 25.3 % (42.0-52.0); HEMOGLOBIN 8.3 gm/dL (14.0-18.0); MCH 26.7 pg (26.0-34.0); MCHC 32.7 g/dL (28.0-37.0); MCV 81.5 fL (80.0-100.0); RBC 3.1 mil/uL (4.50-6.00); RDW-CV 14.3 % (10.5-14.5); WBC 3.9 thou/uL (4.0-11.0)
[2019-10-09 05:35] LABS: CALCIUM 8.3 mg/dL (8.5-10.1); CREATININE 1.2 mg/dL (0.6-1.3); MAGNESIUM 1.6 mg/dL (1.8-2.4); POTASSIUM 4.3 mmol/L (3.5-5.1)
[2019-10-09 08:00] VITALS: BP 179/74
[2019-10-09 19:45] VITALS: BP 179/71
[2019-10-10 03:18] LABS: HEMATOCRIT 23.8 % (42.0-52.0); HEMOGLOBIN 7.9 gm/dL (14.0-18.0); MCHC 33.2 g/dL (28.0-37.0); MCV 81.2 fL (80.0-100.0); MPV 7.9 fl. (7.2-11.1); RBC 2.93 mil/uL (4.50-6.00); RDW-CV 14.3 % (10.5-14.5)
[2019-10-10 03:50] LABS: CALCIUM 8.2 mg/dL (8.5-10.1); CREATININE 1.3 mg/dL (0.6-1.3); MAGNESIUM 1.7 mg/dL (1.8-2.4); POTASSIUM 3.9 mmol/L (3.5-5.1); TOTAL BILIRUBIN 0.2 mg/dL (<0.1-1.0); TOTAL PROTEIN 5.8 g/dL (6.4-8.2)
[2019-10-10 16:01] VITALS: BP 196/78
[2019-10-10 20:00] VITALS: BP 179/84
[2019-10-11 04:08] LABS: HEMATOCRIT 23.8 % (42.0-52.0); HEMOGLOBIN 7.9 gm/dL (14.0-18.0); MCH 26.8 pg (26.0-34.0); MCHC 33.1 g/dL (28.0-37.0); MCV 81.1 fL (80.0-100.0); MPV 7.7 fl. (7.2-11.1); RBC 2.93 mil/uL (4.50-6.00); RDW-CV 14.3 % (10.5-14.5); WBC 3.9 thou/uL (4.0-11.0)
[2019-10-11 04:50] LABS: CALCIUM 8.5 mg/dL (8.5-10.1); CREATININE 1.4 mg/dL (0.6-1.3); MAGNESIUM 1.7 mg/dL (1.8-2.4); POTASSIUM 4.1 mmol/L (3.5-5.1); TOTAL BILIRUBIN 0.2 mg/dL (<0.1-1.0); TOTAL PROTEIN 5.6 g/dL (6.4-8.2)
[2019-10-11 07:20] VITALS: BP 195/86
[2019-10-11] MEDS ORDERED: LEVAQUIN 500 M500 M3 PO (12:12)
[2019-10-11 15:04] VITALS: BP 173/81
[2019-10-11 18:06] LABS: IgA 220 mg/dL (61-437); IgG 841 mg/dL (603-1613); IgM 30 mg/dL (15-143)
== END 2019-10-11 15:45 | DRG 853 ==
LOC: M.ERS 20:03 → M.2W 23:49 → M.TBA-ER 23:49 → M.2W 10-04 01:15 → M.3W 10-09 18:41
PROVIDERS: Emergency Medicine; Family Medicine; Internal Medicine; Psychiatry & Neurology Neuromuscular Medicine; ADMIT Internal Medicine; ATTEND Internal Medicine
PROC: 0JB70ZZ Excision of Back Subcutaneous Tissue and Fascia, Open Approach (ICD-10-PCS; principal; 2019-10-09)
DX: A41.9 Sepsis, unspecified organism (principal); L89.153 Pressure ulcer of sacral region, stage 3; G92 Toxic encephalopathy; N17.0 Acute kidney failure with tubular necrosis; E43 Unspecified severe protein-calorie malnutrition; N30.00 Acute cystitis without hematuria; J96.12 Chronic respiratory failure with hypercapnia; Z68.41 Body mass index [BMI] 40.0-44.9, adult; M13.862 Other specified arthritis, left knee; M13.861 Other specified arthritis, right knee; Z79.899 Other long term (current) drug therapy; Z79.84 Long term (current) use of oral hypoglycemic drugs; Z79.82 Long term (current) use of aspirin; F03.90 Unspecified dementia, unspecified severity, without behavioral disturbance, psychotic disturbance, mood disturbance, and anxiety; E11.40 Type 2 diabetes mellitus with diabetic neuropathy, unspecified; T50.995A Adverse effect of other drugs, medicaments and biological substances, initial encounter; T40.605A Adverse effect of unspecified narcotics, initial encounter; B96.5 Pseudomonas (aeruginosa) (mallei) (pseudomallei) as the cause of diseases classified elsewhere; I12.9 Hypertensive chronic kidney disease with stage 1 through stage 4 chronic kidney disease, or unspecified chronic kidney disease; N18.3 Chronic kidney disease, stage 3 (moderate); E11.22 Type 2 diabetes mellitus with diabetic chronic kidney disease; E83.42 Hypomagnesemia; E11.43 Type 2 diabetes mellitus with diabetic autonomic (poly)neuropathy; K31.84 Gastroparesis; Z20.828 Contact with and (suspected) exposure to other viral communicable diseases; E11.649 Type 2 diabetes mellitus with hypoglycemia without coma; F41.1 Generalized anxiety disorder; G47.00 Insomnia, unspecified; E66.01 Morbid (severe) obesity due to excess calories; G89.29 Other chronic pain; Z87.891 Personal history of nicotine dependence; Y92.89 Other specified places as the place of occurrence of the external cause

== ENCOUNTER → 2019-11-01 | Outpatient (CLI) | payer BC ==
[~2019-11-01] MED LIST changes: +ALPRAZOLAM XR3 MG PO; +ARYMO ER30 MG PO; +CARDURA8 MG PO; +DIGESTIVE PROB250 MG PO; +FUROSEMIDE 20 M20 MG PO; +GRALISE600 MG PO; +KEFLEX500 M1 PO; +LANTUS SUBQ; +LEVAQUIN 500 M500 M3 PO; +LISINOPRIL2.5 MG PO; +LOPRESSOR50 MG PO; +METFORMIN HCL500 M3 PO
== END ==
LOC: M.WC 04:15
PROVIDERS: ATTEND Surgery
DX: E11.622 Type 2 diabetes mellitus with other skin ulcer (principal); L89.313 Pressure ulcer of right buttock, stage 3; L98.412 Non-pressure chronic ulcer of buttock with fat layer exposed; L40.9 Psoriasis, unspecified; E11.51 Type 2 diabetes mellitus with diabetic peripheral angiopathy without gangrene; E11.40 Type 2 diabetes mellitus with diabetic neuropathy, unspecified; E66.01 Morbid (severe) obesity due to excess calories; E78.5 Hyperlipidemia, unspecified; I87.2 Venous insufficiency (chronic) (peripheral); I10 Essential (primary) hypertension; G89.4 Chronic pain syndrome; G25.81 Restless legs syndrome; F41.9 Anxiety disorder, unspecified; Z79.4 Long term (current) use of insulin; Z79.82 Long term (current) use of aspirin; Z68.39 Body mass index [BMI] 39.0-39.9, adult; Z87.891 Personal history of nicotine dependence; Z86.73 Personal history of transient ischemic attack (TIA), and cerebral infarction without residual deficits